=== PATIENT | female | born 1935 | race Caucasian/White ===

== ENCOUNTER → 2016-11-23 | Outpatient (CLI) | payer OTHER ==
[~2016-11-23] MED LIST: ACETAMINOPHEN; ASPIRIN EC81 M1 PO; BENTYL20 MG PO; CELEXA10 MG PO; COREG6.25 MG PO; FOLIC ACID1 MG PO; GABAPENTIN300 M2 PO; HYDRALAZINE HCL25 MG PO; IRON325 ( 651 PO; LASIX; LASIX20 MG PO; LORTAB 10/500 T1 TAB; NEXIUM; NEXIUM PO; PRAVACHOL20 MG PO; PRILOSEC20 M1 PO; PROTONIX PO; REGLAN; SERTRALINE HCL100 M1 PO; TYLENOL ARTHRITIS; TYLOX 5/500 CAP1 CAP; VITAMIN C250 M1 PO; VITAMIN D 2 PO; VITAMIN PO; ZANTAC300 MG PO; ZEBETA5 MG; ZOCOR20 MG PO
--- NOTE | ~2016-11-23 | MY29 ---
[facility] A Service of [facility] RADIOLOGY TEXT RESULTS PATIENT: BRUCE JUSTIN LOCATION: [facility] : 31 UNIT #: [id number] AGE: [address]: TANIA PLATA SEX: F ORDER DR: [id number] [facility] [address] [place], [place] [address] [id number] O MR#: [id number] Acc #: [id number] NAME: BRUCE JUSTIN. : 1935 SEX: F STUDY DATE/TIME: 11/23/2016 10:35 UNIT: [facility] ROOM: STUDY DESCRIPTION: [facility] SCREENING W/ CAD BILAT Attending Physician: Tania Plata M.D. Referring Physician: Tania Plata M.D. Primary Care Physician: Tania Plata M.D. MEDICAL IMAGING REPORT This report is preliminary unless electronic signature is present EXAM Bilateral digital screening mammogram with CAD DATE: 11/23/2016 HISTORY 81-year-old female with history of benign bilateral breast biopsies many years ago. Family history of breast cancer in a sister diagnosed at the age of 69. No personal history of breast cancer or current complaints. COMPARISON Bilateral screening mammogram 11/12/2015 and 10/10/2014 and 08/06/2013. FINDINGS CC and MLO views were obtained of each breast utilizing digital technique and reviewed with an FDA-approved CAD device. Linear markers are placed over each breast denoting surgical scars. Scattered fibroglandular densities are present bilaterally. No new or suspicious nodule is identified. Benign calcifications are scattered throughout both breasts. No suspicious clustered microcalcifications are seen. No nonsurgical architectural distortion is evident. IMPRESSION 1. BIRADS category 2. Benign findings. Routine bilateral screening mammogram is recommended in 1 year. Patients over the age of 40 are entered into a reminder system with target due date for the next mammogram. A result letter will also be sent to the patient. BIRADS: 2, benign findings [facility] A Service of [facility] RADIOLOGY TEXT RESULTS PATIENT: BRUCE JUSTIN LOCATION: [facility] #: [id number] : 31 UNIT #: [id number] AGE: [address]: TANIA PLATA SEX: F ORDER DR: Dictated by... Aracely Trevizo M.D. THIS IS AN ELECTRONICALLY VERIFIED REPORT Aracely Trevizo M.D. at 11/24/2016 9:40 AM KURT/marilou TD: 11/23/2016 14:24 JOB #: [id number] MEDICAL IMAGING REPORT Page 1 of 1 COPY
== END | disposition home or self-care (01) ==
LOC: CWCC 10:15
DX: Z12.31 Encounter for screening mammogram for malignant neoplasm of breast (principal); Z80.3 Family history of malignant neoplasm of breast
CPT/HCPCS: G0202